=== PATIENT | female | born 1995 | race Caucasian/White ===

== ENCOUNTER 2016-05-12 10:28 | Emergency (ER) | payer OTHER ==
[~2016-05-12] VITALS: Ht 160 cm; Wt 61.4 kg
[~2016-05-12 10:28] MED LIST: CIPR-231 PO
[2016-05-12 10:30] VITALS: BP 111/85; PULSE 88; RESP 16; O2SAT 100
--- NOTE | 2016-05-12 10:49 | ED.REPORT ---
HPI-NVD Date of Service May 12, 2016 ED Provider: Tim Murray MD A 21 year old female with a history of "bowel inflammation" (not a formal dx), asthma, and recurrent UTI's presents to the ED complaining of vomiting, abdominal pain, and increased bathroom use. She describes the pain as being like an ulcer present in her entire intestinal track and reports that her vomit has a distinct smell that was present when she had these symptoms about a year ago. Approximately one year ago, the patient was hospitalized at [facility] for 5 days for a viral infection to her colon accompanied by symptoms similar to her current ones, including the distinct smelling vomit. She was told then that she has a risk for crohn's disease, and possible diverticulitis, but was never officially diagnosed with either. She went to [facility] a couple of months ago for the distinct smelling vomit. The patient had eructation onset 2 days ago with the distinct smell associated with vomiting from her last episode. She began vomiting last night, which lasted throughout the whole night. Associated symptoms include nausea with movements, and hematochezia. She also reports diaphoresis, chills and heat flashes but is unsure if these particular symptoms are related to her marijuana use. The patient describes that she normally does not use the bathroom that often and attributes this as the cause of baseline intestinal flare ups. She does eat a lot but reports recent weight loss. She denies any diarrhea, but expects to have it soon because she did have it when she had these other symptoms last. She denies . The patient reports that they get UTI's a lot, averaging one per month. The patient has never had any abdominal surgeries and does not take any medications. She has not taken any medications for current nausea. Her aunt has crohn's disease. The patient does not have a personal phone, but can be reached through her mom's phone. Nursing Notes Stated Complaint: VOMITING Chief Complaint: Female Abdominal Pain Nursing Notes Reviewed: Yes ([email or web address] not reconciled) Allergies: Coded Allergies: No Known Allergies (Verified Allergy, Unknown, 05/12/16) Scheduled Sulfamethoxazole/Trimeth 800-160 mg (Bactrim DS) 1 Each Tablet 1 TABLET PO BID Scheduled PRN Ciprofloxacin (Cipro) 500 Mg Tablet 500 MG PO BID PRN PRN uti Ondansetron ODT (Ondansetron ODT) 8 Mg Tab.rapdis 8 MG PO Q4H PRN PRN For Nausea General Time Seen by MD: 10:43 Chief Complaint Vomiting Hx Obtained From: Patient, Other family... (Mother) Arrived By: Walk-in Onset Occurred: 2 days ago Symptom Duration: Since onset Recent Healthcare: Recent doctor visit (She visited [facility] a couple of months ago.) Similar Sx Previous: Yes Past Medical History Past Medical History Hx of Recurrent UTIs which. Hx of Infrequent pyelonephritis. bowel inflammation. Hospitalized formerly [facility] 1 year ago for viral infection to colon. Reports: Asthma Past Surgical History None reported. Family History Aunt with crohn's disease. Smoking History Current Every Day Smoker Social History Alcohol Use: "Social" Drug Use: IV drugs, Meth, Other Occupation lives self Ambulatory Status Independent Review of Systems Review of Systems Note: Increased bathroom use. Heat flashes. Constitutional: Reports: Chills GI: Reports: Abdominal pain, Hematochezia, Nausea, Vomiting, Denies: Diarrhea Skin: Reports Diaphoresis Complete sys rev & neg: except as marked. Female: Denies: Physical Exam Initial Vital Signs Vital Signs (First) Date Time Temp Pulse Resp B/P Pulse Ox O2 Delivery O2 Flow Rate FiO2 05/12/16 10:30 35.8 88 16 111/85 100 Room Air Initial VS: Reviewed, Vital signs normal General/Constitutional: Awake, Alert Patient is anxious and thin, but does not appear toxic. She does not appear intoxicated or in current withdrawal. She does not appear dehydrated, as she is energetic. No signs of active infection. Abdomen: Atraumatic, Soft, Non-tender (Abdomen is nontender to palpation. ) ENT: Atraumatic, Mucous membranes moist Respiratory / Chest: Atraumatic, Breath sounds NL, Breath sounds = bilat, No respiratory distress Cardiovascular: Heart rate NL, Regular rhythm, Heart sounds NL, No gallop, No murmurs, No rubs Back: Atraumatic, Full range of motion Skin: No rash, Warm, Dry Patient does have trackmarks or recent IV access on left antecubital fossa. Neurologic: Oriented X3, Speech NL Head / Eyes: Atraumatic, Normocephalic, PERRL, EOMI Neck: Atraumatic, Full range of motion Upper Extremity / MS: Atraumatic, Full range of motion Wrist / Hand: Atraumatic, Full range of motion Lower Extremity / Pelvis / MS: Atraumatic, Full range of motion Ankle / Foot: Atraumatic, Full range of motion Interpretation & Diagnostics Lab Results Interpretation Result Diagram: 05/12/16 1132 05/12/16 1132 Test 05/12/16 11:32 05/12/16 11:43 White Blood Count 8.5th/mm3 (3.8-10.1) Red Blood Count 5.33mil/mm3 (3.90-5.20) Hemoglobin 15.2g/dL (12.0-15.6) Hematocrit 44.5% (35.0-46.0) Mean Corpuscular Volume 83.5fL (81-100) Mean Corpuscular Hemoglobin 28.5pg (27.0-35.0) Mean Corpuscular Hemoglobin Concent 34.2% (32.0-37.0) Red Cell Distribution Width 12.6% (12.3-15.4) Platelet Count 263bil/L (150-400) Neutrophils (%) (Auto) 65.4% (40-74) Lymphocytes (%) (Auto) 25.3% (14-46) Monocytes (%) (Auto) 6.3% (4-12) Eosinophils (%) (Auto) 2.5% (0-5) Basophils (%) (Auto) 0.4% (0-3) Sodium Level 137mEq/L (134-144) Potassium Level 4.3mEq/L (3.5-5.2) Chloride Level 99mEq/L (97-108) Carbon Dioxide Level 24mmol/L (18-29) Blood Urea Nitrogen 11mg/dL (6-20) Creatinine 0.73mg/dL (0.57-1.00) Estimat Glomerular Filtration Rate 146mL/min (>59) Glucose Level 97mg/dL (60-99) Calcium Level 8.9mg/dL (8.5-10.1) Magnesium Level 2.4mg/dL (1.6-2.6) Total Bilirubin 0.4mg/dL (0.0-1.2) Aspartate Amino Transf (AST/SGOT) 14U/L (0-50) Alanine Aminotransferase (ALT/SGPT) 13U/L (0-32) Alkaline Phosphatase 76U/L (25-150) Total Protein 7.2g/dL (6.4-8.4) Albumin 4.2g/dL (3.4-5.0) Lipase 22U/L (13-60) Urine Color Straw (YELLOW) Urine Appearance Hazy (CLEAR,HAZY) Urine pH 5.5 (5.0-8.0) Urine Specific [place] 1.025 (1.003-1.035) Urine Protein Negativemg/dL (NEG,TRACE) Urine Glucose (UA) Negativemg/dL (NEGATIVE) Urine Ketones Negativemg/dL (NEGATIVE) Urine Occult Blood Trace (NEGATIVE) Urine Nitrite Positive (NEGATIVE) Urine Bilirubin Negative (NEGATIVE) Urine Urobilinogen Normalmg/dL (NORMAL) Urine Leukocyte Esterase Moderate (NEGATIVE) Urine RBC 0-2/hpf (0-2) Urine WBC 0-5/hpf (0-5) Urine Epithelial Cells Occasional/hpf (NONE-MOD) Urine Crystals None seen (NONE SEEN) Urine Bacteria Many/hpf (NONE-FEW) Urine Hyaline Casts None/lpf (NONE) Urine Granular Casts None seen (NONE SEEN) Urine Waxy Casts None seen (NONE SEEN) Urine Red Blood Cell Casts None seen (NONE SEEN) Urine White Blood Cell Casts None seen (NONE SEEN) Urine Mucus None seen (None Seen) Urine Trichomonas None seen (NONE SEEN) Urine Yeast None (NONE SEEN) Urinalysis Comment Urine Culture Reflexed Indicated Lab Results Interpretation: C normal lites and CMP normal negative U tox positive for multiple- meth, amphetamines, opiates, oxycodone Emergency negative UA abnormal, concerning for possible infection with multiple more markers-patient denies dysuria or clear symptoms Re-Eval/Medical Decision Med Decision/Clinical Course This is a 21-year-old female presents complaining of vomiting and abdominal discomfort. She reports admission was a little over a year ago for vomiting illness at [facility], and was under the impression that she was told she might have inflammatory bowel disease. She not had any issues until today which she will some pain and vomiting. Some contradictory history-she admits to drug use, and tells me that she did not use , that admits he used "dope". She talks about how she "does not use the bathroom and "and apply she might of have had some diarrhea. She denies bleeding, she denies blood in emesis or stools. She denies dysuria. She denies fever. As anxiously fatigued, but nontoxic. Abdomen is not particularly tender, she does not have overt signs of peritonitis or an acute surgical abdomen evident on clinical exam. She is not of clinical findings suggestive of cholecystitis or appendicitis. Labs are obtained are normal. She received some pain and nausea medicines in is improved. Records are requested from [facility], and received an ED visit but not the hospitalization a year ago. Extensive workup at that time the imaging negative. The patient's urine is abnormal, the patient tells me she has near monthly UTIs and does not always have symptoms-pyelonephritis to be in the differential, but the patient has not had CVA tenderness or back pain, she states she usually has those. She is not febrile clinically septic either. She has no leukocytosis. Source unclear this is simply an incidental UTI. The patient feels well on reevaluation wishes to go home. I think this is reasonable. He is not febrile or toxic. Although she has a history of IVDA, She has no fever, no leukocytosis no clinical findings of septicemia. Pending urine cultures she received a single dose of ceftriaxone, and I written for some oral Bactrim as an outpaitne. I written for some oral ondansetron for when necessary use as well. Routine precautions are reviewed with both patient and mother. The patient is discharged in improved condition with The mother. Source of Hx: Old records Re-Evaluation/Progress : Time of Eval: 13:34 Re-Evaluation/Progress Note: Rechecked the patient and explained test results. She reports that symptoms have mildly improved and that she wants to go home. The patient reports that they get UTI's a lot, reporting that she averages one per month. Consultation : Call Returned at: 13:10 Note: Called patient's mom to communicate that the patient has a negative infectious mononucleosis test result. Differential Diagnosis: Positive: Dehydration, Negative: Appendicitis, Boerhaave syndrome, Diabetes mellitus, Salud-Boggs syndrome, Meniere's disease, Pancreatitis, Discharge & Departure Impression: Primary Impression: Vomiting Vomiting type: unspecified Vomiting Intractability: non-intractable Nausea presence: with nausea Qualified Code: R11.2 - Nausea with vomiting, unspecified Additional Impression: UTI (urinary tract infection) Urinary tract infection type: acute cystitis Hematuria presence: without hematuria Qualified Code: N30.00 - Acute cystitis without hematuria Disposition: Home Discharge Condition All VS Reviewed: Yes Condition: Improved Additional Instructions: 1. Your blood tests were normal. 2. Your urine tests do raise a concern for a possible urine/kidney infection. You have received a dose of the antibiotic Ceftriaxone in the ED. We have sent a urine "culture" for further testing that usually takes ~2 days for results. We will try to call you for results, as further antibiotics may be reasonable if it is abnormal. You can call us [phone] for results at any time. 3. You can take the antibiotic trimethoprim/sulfa DS twice a day x 5 days. 4. Take ondansetron 8mg - let dissolve under tongue - up to every 4 hours asn needed for nasuea. 5. Drink small, frequent sips of fluids 6. Return to the emergency department if new, worsening, or uncontrolled Referrals: ANDREA (PCP) Nirmal Attestation Portions of this note were transcribed by Raji Anthony. I, Dr. Murray personally performed the history, physical exam and medical decision-making; I reviewed and confirmed the accuracy of the information in the transcribed note. Signed by: Nirmal Saunders, 05/12/2016 1400. copies to: Tim Tristan MD May 12, 2016 10:49 Raji Anthony May 12, 2016 11:09
[2016-05-12] MEDS ORDERED: Promethazine Inj 12.5 MG in Dextrose 5%-Pha MIX 50 ML IV ONE (11:00)
[2016-05-12] MEDS ORDERED: 0.9% Sodium Chloride 1,000 ML IV ONE (11:00)
[2016-05-12 11:34] LABS: BASOPHILS % (AUTO) 0.4 % (0-3); EOSINOPHILS % (AUTO) 2.5 % (0-5); MONOCYTES % (AUTO) 6.3 % (4-12); Mean Corpuscular Hemoglobin 28.5 pg (27.0-35.0); Mean Corpuscular Volume 83.5 fL (81-100); NEUTROPHILS % (AUTO) 65.4 % (40-74); Platelet Count 263 bil/L (150-400)
[2016-05-12 12:30] LABS: APPEARANCE,URINE HAZY (CLEAR,HAZY); COLOR,URINE STRAW (YELLOW); OCCULT BLOOD,URINE TRACE (NEGATIVE); PH,URINE 5.5 (5.0-8.0)
[2016-05-12 12:31] LABS: UROBILINOGEN,URINE NORMAL (NORMAL)
[2016-05-12 12:45] VITALS: BP 115/54; PULSE 66; RESP 20; O2SAT 100
[2016-05-12] MEDS ORDERED: cefTRIAXone Inj 2,000 MG in Dextrose 5% Minibag Plus 50 ML IV ONE (13:15)
[2016-05-12] MEDS ORDERED: ONDA8TAB10 PO (13:48)
[2016-05-12] MEDS ORDERED: SULF1TAB7 PO (13:48)
== END 2016-05-12 13:44 | disposition home or self-care (01) ==
LOC: SED 10:28
DX: N30.00 Acute cystitis without hematuria (principal); R11.2 Nausea with vomiting, unspecified; J45.909 Unspecified asthma, uncomplicated; F17.200 Nicotine dependence, unspecified, uncomplicated
CPT/HCPCS: 36415; 80053; 81000; 81025; 83690; 83735; 85025; 87077; 87086; 87088; 87186; 96361; 96365; 96367; 96375; 99284; J0696; J1200; J2550; J7030